=== PATIENT | male | born 1970 | race Caucasian/White ===

== ENCOUNTER 2016-11-13 08:39 | Outpatient (RCR) | payer OTHER ==
[2016-11-13 08:51] LABS: BASOPHILS % (AUTO) 0 % (0-10); EOSINOPHILS # (AUTO) 0.2 10^3/uL (0.0-0.3); EOSINOPHILS % (AUTO) 2 % (0-10); LYMPHOCYTES # (AUTO) 2.7 X 10^3 (1.0-4.0); LYMPHOCYTES % (AUTO) 28 % (12-44); MEAN CORPUSCULAR HEMOGLOBIN 32 PG (25-34); MEAN CORPUSCULAR HGB CONC 33 G/DL (32-36); MEAN CORPUSCULAR VOLUME 95 FL (80-99); MEAN PLATELET VOLUME 9.8 FL (7.4-10.4); MONOCYTES % (AUTO) 10 % (0-12); NEUTROPHILS # (AUTO) 5.7 X 10^3 (1.8-7.8); NEUTROPHILS % (AUTO) 59 % (42-75); PLATELET COUNT 238 10^3/uL (130-400); RED BLOOD COUNT 5.12 10^6/uL (4.35-5.85); RED CELL DISTRIBUTION WIDTH 14.2 % (10.0-14.5); WHITE BLOOD COUNT 9.7 10^3/uL (4.3-11.0)
[2016-11-13 09:09] LABS: CREATININE SERUM 0.78 MG/DL (0.60-1.30)
== END 2017-02-11 | disposition home or self-care (01) ==
LOC: LAB 08:39
PROVIDERS: ATTEND Internal Medicine Gastroenterology
DX: M06.9 Rheumatoid arthritis, unspecified (principal)
CPT/HCPCS: 36415; 82565; 84450; 85025

== ENCOUNTER → 2017-01-26 | Outpatient (CLI) | payer OTHER ==
[2017-01-26 10:21] LABS: BASOPHILS % (AUTO) 0 % (0-10); EOSINOPHILS # (AUTO) 0.1 10^3/uL (0.0-0.3); EOSINOPHILS % (AUTO) 1 % (0-10); LYMPHOCYTES # (AUTO) 2.7 X 10^3 (1.0-4.0); LYMPHOCYTES % (AUTO) 28 % (12-44); MEAN CORPUSCULAR HEMOGLOBIN 32 PG (25-34); MEAN CORPUSCULAR HGB CONC 34 G/DL (32-36); MEAN CORPUSCULAR VOLUME 94 FL (80-99); MEAN PLATELET VOLUME 10.1 FL (7.4-10.4); MONOCYTES # (AUTO) 0.8 X 10^3 (0.0-1.0); MONOCYTES % (AUTO) 8 % (0-12); NEUTROPHILS # (AUTO) 6.1 X 10^3 (1.8-7.8); NEUTROPHILS % (AUTO) 63 % (42-75); PLATELET COUNT 248 10^3/uL (130-400); RED BLOOD COUNT 4.99 10^6/uL (4.35-5.85); RED CELL DISTRIBUTION WIDTH 14.6 % (10.0-14.5); WHITE BLOOD COUNT 9.8 10^3/uL (4.3-11.0)
[2017-01-26 10:43] LABS: ALBUMIN 4.1 GM/DL (3.2-4.5); BILIRUBIN,DIRECT 0.4 MG/DL (0.0-0.3); BILIRUBIN,INDIRECT 0.9 MG/DL; BILIRUBIN,TOTAL 1.3 MG/DL (0.1-1.0); CREATININE SERUM 0.74 MG/DL (0.60-1.30); TOTAL PROTEIN 6.7 GM/DL (6.4-8.2); hs C REACTIVE PROTEIN 0.31 MG/DL (0.00-0.50)
[2017-01-26 10:49] LABS: ERYTHROCYTE SEDIMENTATION RATE 2 MM/HR (0-15)
--- NOTE | 2017-01-26 11:39 | Diagnostic Imaging Report ---
3 views of each hand is performed bilaterally. INDICATION: Joint pain. Positive rheumatoid factor. FINDINGS: 3 views of the left hand demonstrate no fracture, dislocation, or radiopaque foreign body. The joint spaces are preserved with no erosive arthritic changes noted. There is a 5-mm lucency in the proximal aspect of the capitate. This is a nonspecific finding and could be an incidental intraosseous ganglion cyst. Right hand radiographs demonstrate no fracture, dislocation, or radiopaque foreign body. There is no joint space narrowing, erosions, or deformity. IMPRESSION: No significant abnormality. Dictated by: Dictated on workstation # [id number]
--- NOTE | 2017-01-26 11:41 | Diagnostic Imaging Report ---
3 views of each foot bilaterally. INDICATION: Joint pain with positive rheumatoid factor. FINDINGS: Left foot: There is no fracture, dislocation, or radiopaque foreign body. Joint alignment is satisfactory. No evidence of erosive arthritis is seen. There is a prominent calcaneal spur noted. 3 views of the right foot: No acute fracture or subluxation or dislocation is present. No joint space narrowing, erosions, or malalignment. Calcaneal spur is seen. IMPRESSION: Bilateral calcaneal spurs are seen. No significant arthritic changes noted. Dictated by: Dictated on workstation # [id number]
[2017-01-26 20:54] LABS: HEPATITIS B SURFACE AB INDEX 49.97 mIU/mL (>=10.00)
[2017-01-27 07:02] LABS: HEPATITIS B SURFACE AB INTERP Immune (Immune)
== END ==
LOC: RAD 09:22
PROVIDERS: ATTEND Internal Medicine Rheumatology
DX: M77.31 Calcaneal spur, right foot (principal); M77.32 Calcaneal spur, left foot; M05.741 Rheumatoid arthritis with rheumatoid factor of right hand without organ or systems involvement; M05.742 Rheumatoid arthritis with rheumatoid factor of left hand without organ or systems involvement; Z79.899 Other long term (current) drug therapy; M88.9 Osteitis deformans of unspecified bone
CPT/HCPCS: 36415; 80076; 82565; 84075; 84080; 85025; 85652; 86141; 86200; 86430; 86480; 86705; 86706; 86803; 87340

== ENCOUNTER → 2017-06-16 | Outpatient (CLI) | payer OTHER ==
[2017-06-16 09:48] LABS: BASOPHILS % (AUTO) 0 % (0-10); EOSINOPHILS # (AUTO) 0.2 10^3/uL (0.0-0.3); EOSINOPHILS % (AUTO) 1 % (0-10); LYMPHOCYTES # (AUTO) 2.5 X 10^3 (1.0-4.0); LYMPHOCYTES % (AUTO) 22 % (12-44); MEAN CORPUSCULAR HEMOGLOBIN 32 PG (25-34); MEAN CORPUSCULAR HGB CONC 34 G/DL (32-36); MEAN CORPUSCULAR VOLUME 95 FL (80-99); MONOCYTES # (AUTO) 0.9 X 10^3 (0.0-1.0); MONOCYTES % (AUTO) 8 % (0-12); NEUTROPHILS # (AUTO) 7.6 X 10^3 (1.8-7.8); NEUTROPHILS % (AUTO) 68 % (42-75); PLATELET COUNT 254 10^3/uL (130-400); RED BLOOD COUNT 5.12 10^6/uL (4.35-5.85); RED CELL DISTRIBUTION WIDTH 13.9 % (10.0-14.5); WHITE BLOOD COUNT 11.2 10^3/uL (4.3-11.0)
[2017-06-16 10:09] LABS: ALANINE AMINOTRANSFERASE 46 U/L (0-55); ALBUMIN 4.2 GM/DL (3.2-4.5); ASPARTATE AMINO TRANSFERASE 21 U/L (5-34); BILIRUBIN,DIRECT 0.2 MG/DL (0.0-0.3); BILIRUBIN,INDIRECT 0.4 MG/DL; BILIRUBIN,TOTAL 0.6 MG/DL (0.1-1.0); CREATININE SERUM 0.78 MG/DL (0.60-1.30); GFR ESTIMATED > 60; TOTAL PROTEIN 7.2 GM/DL (6.4-8.2)
== END ==
LOC: LAB 09:28
PROVIDERS: ATTEND Internal Medicine Rheumatology
DX: Z51.81 Encounter for therapeutic drug level monitoring (principal); Z79.899 Other long term (current) drug therapy
CPT/HCPCS: 36415; 80076; 82565; 85025

== ENCOUNTER → 2017-09-07 | Outpatient (CLI) | payer OTHER | LOC: LAB 09:23 | PROVIDERS: ATTEND Internal Medicine Rheumatology | DX: M05.741 Rheumatoid arthritis with rheumatoid factor of right hand without organ or systems involvement (principal); M05.742 Rheumatoid arthritis with rheumatoid factor of left hand without organ or systems involvement | CPT/HCPCS: 36415; 85652 ==

== ENCOUNTER → 2017-11-24 | Outpatient (CLI) | payer OTHER ==
[2017-11-24 10:20] LABS: BASOPHILS % (AUTO) 1 % (0-10); EOSINOPHILS # (AUTO) 0.1 10^3/uL (0.0-0.3); EOSINOPHILS % (AUTO) 2 % (0-10); HEMATOCRIT 45 % (40-54); LYMPHOCYTES # (AUTO) 2.4 X 10^3 (1.0-4.0); LYMPHOCYTES % (AUTO) 28 % (12-44); MEAN CORPUSCULAR HEMOGLOBIN 34 PG (25-34); MEAN CORPUSCULAR HGB CONC 36 G/DL (32-36); MEAN CORPUSCULAR VOLUME 94 FL (80-99); MEAN PLATELET VOLUME 9.9 FL (7.4-10.4); MONOCYTES # (AUTO) 0.9 X 10^3 (0.0-1.0); MONOCYTES % (AUTO) 11 % (0-12); NEUTROPHILS # (AUTO) 5.2 X 10^3 (1.8-7.8); NEUTROPHILS % (AUTO) 60 % (42-75); PLATELET COUNT 261 10^3/uL (130-400); RED BLOOD COUNT 4.73 10^6/uL (4.35-5.85); RED CELL DISTRIBUTION WIDTH 13.8 % (10.0-14.5); WHITE BLOOD COUNT 8.7 10^3/uL (4.3-11.0)
[2017-11-24 10:43] LABS: ALANINE AMINOTRANSFERASE 43 U/L (0-55); ALBUMIN 4.1 GM/DL (3.2-4.5); ALKALINE PHOSPHATASE 134 U/L (40-136); BILIRUBIN,DIRECT 0.3 MG/DL (0.0-0.3); BILIRUBIN,INDIRECT 0.8 MG/DL; BILIRUBIN,TOTAL 1.1 MG/DL (0.1-1.0); CREATININE SERUM 0.75 MG/DL (0.60-1.30); GFR ESTIMATED > 60; TOTAL PROTEIN 6.8 GM/DL (6.4-8.2)
[2017-11-24 11:14] LABS: ERYTHROCYTE SEDIMENTATION RATE 4 MM/HR (0-15)
== END ==
LOC: LAB 09:55
PROVIDERS: ATTEND Internal Medicine Rheumatology
DX: M05.741 Rheumatoid arthritis with rheumatoid factor of right hand without organ or systems involvement (principal); M05.742 Rheumatoid arthritis with rheumatoid factor of left hand without organ or systems involvement; Z79.899 Other long term (current) drug therapy
CPT/HCPCS: 36415; 80076; 82565; 85025; 85652; 86141

== ENCOUNTER → 2018-02-01 | Outpatient (CLI) | payer OTHER ==
[2018-02-01 09:34] LABS: BASOPHILS % (AUTO) 0 % (0-10); EOSINOPHILS # (AUTO) 0.2 10^3/uL (0.0-0.3); EOSINOPHILS % (AUTO) 3 % (0-10); HEMATOCRIT 46 % (40-54); HEMOGLOBIN 15.9 G/DL (13.3-17.7); LYMPHOCYTES % (AUTO) 27 % (12-44); MEAN CORPUSCULAR HEMOGLOBIN 33 PG (25-34); MEAN CORPUSCULAR HGB CONC 34 G/DL (32-36); MEAN CORPUSCULAR VOLUME 95 FL (80-99); MONOCYTES # (AUTO) 0.6 X 10^3 (0.0-1.0); MONOCYTES % (AUTO) 9 % (0-12); NEUTROPHILS # (AUTO) 4.6 X 10^3 (1.8-7.8); NEUTROPHILS % (AUTO) 61 % (42-75); PLATELET COUNT 260 10^3/uL (130-400); RED BLOOD COUNT 4.89 10^6/uL (4.35-5.85); RED CELL DISTRIBUTION WIDTH 14.2 % (10.0-14.5); WHITE BLOOD COUNT 7.5 10^3/uL (4.3-11.0)
[2018-02-01 09:57] LABS: BILIRUBIN,DIRECT 0.2 MG/DL (0.0-0.3); BILIRUBIN,INDIRECT 0.4 MG/DL; BILIRUBIN,TOTAL 0.6 MG/DL (0.1-1.0); CREATININE SERUM 0.71 MG/DL (0.60-1.30)
[2018-02-01 10:00] LABS: ERYTHROCYTE SEDIMENTATION RATE 6 MM/HR (0-15)
== END ==
LOC: LAB 09:05
PROVIDERS: ATTEND Internal Medicine Rheumatology
DX: M05.741 Rheumatoid arthritis with rheumatoid factor of right hand without organ or systems involvement (principal); M05.742 Rheumatoid arthritis with rheumatoid factor of left hand without organ or systems involvement; Z79.899 Other long term (current) drug therapy
CPT/HCPCS: 36415; 80076; 82565; 85025; 85652; 86141

== ENCOUNTER 2018-04-27 10:50 | Outpatient (RCR) | payer OTHER ==
[2018-04-27 11:06] LABS: BASOPHILS % (AUTO) 0 % (0-10); EOSINOPHILS # (AUTO) 0.2 10^3/uL (0.0-0.3); EOSINOPHILS % (AUTO) 2 % (0-10); HEMATOCRIT 47 % (40-54); LYMPHOCYTES # (AUTO) 2.6 X 10^3 (1.0-4.0); LYMPHOCYTES % (AUTO) 30 % (12-44); MEAN CORPUSCULAR HEMOGLOBIN 32 PG (25-34); MEAN CORPUSCULAR HGB CONC 34 G/DL (32-36); MEAN CORPUSCULAR VOLUME 94 FL (80-99); MEAN PLATELET VOLUME 9.9 FL (7.4-10.4); MONOCYTES # (AUTO) 0.9 X 10^3 (0.0-1.0); MONOCYTES % (AUTO) 10 % (0-12); NEUTROPHILS # (AUTO) 4.9 X 10^3 (1.8-7.8); NEUTROPHILS % (AUTO) 58 % (42-75); PLATELET COUNT 281 10^3/uL (130-400); RED CELL DISTRIBUTION WIDTH 14.4 % (10.0-14.5); WHITE BLOOD COUNT 8.6 10^3/uL (4.3-11.0)
[2018-04-27 11:31] LABS: ALBUMIN 4.2 GM/DL (3.2-4.5); BILIRUBIN,DIRECT 0.2 MG/DL (0.0-0.3); BILIRUBIN,INDIRECT 0.5 MG/DL; BILIRUBIN,TOTAL 0.7 MG/DL (0.1-1.0); CREATININE SERUM 0.69 MG/DL (0.60-1.30); TOTAL PROTEIN 7.1 GM/DL (6.4-8.2)
[2018-04-27 11:50] LABS: ERYTHROCYTE SEDIMENTATION RATE 2 MM/HR (0-15)
== END 2018-07-26 | disposition home or self-care (01) ==
LOC: LAB 10:50
PROVIDERS: ATTEND Internal Medicine Rheumatology
DX: M05.741 Rheumatoid arthritis with rheumatoid factor of right hand without organ or systems involvement (principal); Z79.899 Other long term (current) drug therapy
CPT/HCPCS: 36415; 80076; 82565; 85025; 85652; 86141

== ENCOUNTER → 2018-05-02 | Outpatient (CLI) | payer OTHER ==
--- NOTE | 2018-05-02 10:33 | Diagnostic Imaging Report ---
INDICATION: Pain in right heel for 4 months. TIME OF EXAMINATION: 10:27 AM. FINDINGS: There is a large plantar calcaneal spur. The calcaneus is otherwise unremarkable. The midfoot is unremarkable. The metatarsals and phalanges are intact. No periosteal reaction or stress reaction is seen. No fractures are identified. IMPRESSION: Calcaneal spur. The study is otherwise unremarkable. Dictated by: Dictated on workstation # [id number]
== END ==
LOC: RAD 09:49
PROVIDERS: ATTEND Internal Medicine Rheumatology
DX: M77.31 Calcaneal spur, right foot (principal); M05.741 Rheumatoid arthritis with rheumatoid factor of right hand without organ or systems involvement; M05.742 Rheumatoid arthritis with rheumatoid factor of left hand without organ or systems involvement; M79.671 Pain in right foot
CPT/HCPCS: 73630

== ENCOUNTER → 2018-08-03 | Outpatient (CLI) | payer OTHER ==
[2018-08-03 10:47] LABS: BASOPHILS % (AUTO) 0 % (0-10); EOSINOPHILS # (AUTO) 0.2 10^3/uL (0.0-0.3); EOSINOPHILS % (AUTO) 2 % (0-10); HEMATOCRIT 46 % (40-54); HEMOGLOBIN 15.7 G/DL (13.3-17.7); LYMPHOCYTES # (AUTO) 2.5 X 10^3 (1.0-4.0); LYMPHOCYTES % (AUTO) 28 % (12-44); MEAN CORPUSCULAR HEMOGLOBIN 32 PG (25-34); MEAN CORPUSCULAR HGB CONC 34 G/DL (32-36); MEAN CORPUSCULAR VOLUME 95 FL (80-99); MEAN PLATELET VOLUME 9.8 FL (7.4-10.4); MONOCYTES # (AUTO) 0.7 X 10^3 (0.0-1.0); MONOCYTES % (AUTO) 8 % (0-12); NEUTROPHILS # (AUTO) 5.6 X 10^3 (1.8-7.8); NEUTROPHILS % (AUTO) 62 % (42-75); PLATELET COUNT 281 10^3/uL (130-400); RED CELL DISTRIBUTION WIDTH 14.7 % (10.0-14.5)
[2018-08-03 11:12] LABS: ALBUMIN 4.2 GM/DL (3.2-4.5); BILIRUBIN,DIRECT 0.3 MG/DL (0.0-0.3); BILIRUBIN,INDIRECT 0.5 MG/DL; BILIRUBIN,TOTAL 0.8 MG/DL (0.1-1.0); CREATININE SERUM 0.76 MG/DL (0.60-1.30); TOTAL PROTEIN 7.1 GM/DL (6.4-8.2)
[2018-08-03 12:35] LABS: ERYTHROCYTE SEDIMENTATION RATE 5 MM/HR (0-15)
== END ==
LOC: LAB 10:32
PROVIDERS: ATTEND Internal Medicine Rheumatology
DX: M05.741 Rheumatoid arthritis with rheumatoid factor of right hand without organ or systems involvement (principal); M05.742 Rheumatoid arthritis with rheumatoid factor of left hand without organ or systems involvement; Z79.899 Other long term (current) drug therapy
CPT/HCPCS: 36415; 80076; 82565; 85025; 85652; 86141

== ENCOUNTER → 2018-11-29 | Outpatient (CLI) | payer BC ==
[2018-11-29 10:38] LABS: BASOPHILS % (AUTO) 0 % (0-10); EOSINOPHILS # (AUTO) 0.1 10^3/uL (0.0-0.3); EOSINOPHILS % (AUTO) 2 % (0-10); HEMATOCRIT 47 % (40-54); LYMPHOCYTES % (AUTO) 29 % (12-44); MEAN CORPUSCULAR HEMOGLOBIN 33 PG (25-34); MEAN CORPUSCULAR HGB CONC 34 G/DL (32-36); MEAN CORPUSCULAR VOLUME 96 FL (80-99); MONOCYTES # (AUTO) 0.6 X 10^3 (0.0-1.0); MONOCYTES % (AUTO) 9 % (0-12); NEUTROPHILS # (AUTO) 4.2 X 10^3 (1.8-7.8); NEUTROPHILS % (AUTO) 60 % (42-75); PLATELET COUNT 247 10^3/uL (130-400); RED CELL DISTRIBUTION WIDTH 14.3 % (10.0-14.5); WHITE BLOOD COUNT 6.9 10^3/uL (4.3-11.0)
[2018-11-29 10:59] LABS: ALBUMIN 4.1 GM/DL (3.2-4.5); BILIRUBIN,DIRECT 0.3 MG/DL (0.0-0.3); BILIRUBIN,INDIRECT 0.4 MG/DL; BILIRUBIN,TOTAL 0.7 MG/DL (0.1-1.0); CREATININE SERUM 0.77 MG/DL (0.60-1.30); TOTAL PROTEIN 6.8 GM/DL (6.4-8.2)
[2018-11-29 11:04] LABS: ERYTHROCYTE SEDIMENTATION RATE 4 MM/HR (0-15)
== END ==
LOC: LAB 09:53
PROVIDERS: ATTEND Internal Medicine Rheumatology
DX: M05.741 Rheumatoid arthritis with rheumatoid factor of right hand without organ or systems involvement (principal); M05.742 Rheumatoid arthritis with rheumatoid factor of left hand without organ or systems involvement; Z79.899 Other long term (current) drug therapy
CPT/HCPCS: 36415; 80076; 82565; 85025; 85652; 86141

== ENCOUNTER → 2019-03-27 | Outpatient (CLI) | payer BC | LOC: LAB 09:14 | PROVIDERS: ATTEND Internal Medicine Rheumatology | DX: M05.741 Rheumatoid arthritis with rheumatoid factor of right hand without organ or systems involvement (principal); M05.742 Rheumatoid arthritis with rheumatoid factor of left hand without organ or systems involvement | CPT/HCPCS: 36415; 86141 ==

== ENCOUNTER 2019-05-03 20:02 | Emergency (ER) | payer BC ==
[~2019-05-03] VITALS: Ht 187.9 cm; Wt 154.5 kg
[2019-05-03 20:24] LABS: BASOPHILS % (AUTO) 0 % (0-10); EOSINOPHILS # (AUTO) 0.2 10^3/uL (0.0-0.3); EOSINOPHILS % (AUTO) 2 % (0-10); HEMATOCRIT 47 % (40-54); LYMPHOCYTES % (AUTO) 27 % (12-44); MEAN CORPUSCULAR HEMOGLOBIN 32 PG (25-34); MEAN CORPUSCULAR HGB CONC 34 G/DL (32-36); MEAN CORPUSCULAR VOLUME 95 FL (80-99); MEAN PLATELET VOLUME 9.5 FL (7.4-10.4); MONOCYTES # (AUTO) 1.1 X 10^3 (0.0-1.0); MONOCYTES % (AUTO) 9 % (0-12); NEUTROPHILS # (AUTO) 7.1 X 10^3 (1.8-7.8); NEUTROPHILS % (AUTO) 62 % (42-75); PLATELET COUNT 290 10^3/uL (130-400); RED CELL DISTRIBUTION WIDTH 14.6 % (10.0-14.5); WHITE BLOOD COUNT 11.3 10^3/uL (4.3-11.0)
[2019-05-03 20:41] LABS: FIBRIN DEGRADATION PRODUCTS 1.92 UG/ML (0.00-0.49); INR 0.9 (0.8-1.4); PROTHROMBIN TIME PATIENT 12.4 SEC (12.2-14.7)
[2019-05-03 20:53] LABS: ALANINE AMINOTRANSFERASE 29 U/L (0-55); ALBUMIN 4.3 GM/DL (3.2-4.5); ALKALINE PHOSPHATASE 142 U/L (40-136); BILIRUBIN,TOTAL 0.5 MG/DL (0.1-1.0); BUN/CREATININE RATIO 14; CALCIUM 9.5 MG/DL (8.5-10.1); CARBON DIOXIDE 23 MMOL/L (21-32); CHLORIDE 106 MMOL/L (98-107); CREATINE KINASE 88 U/L (30-200); CREATININE SERUM 0.81 MG/DL (0.60-1.30); GFR ESTIMATED > 60; GLUCOSE 98 MG/DL (70-105); LIPASE 6 U/L (8-78); MAGNESIUM 1.7 MG/DL (1.6-2.4); POTASSIUM 4.3 MMOL/L (3.6-5.0); SODIUM 141 MMOL/L (135-145); TOTAL PROTEIN 7.4 GM/DL (6.4-8.2)
[2019-05-03 20:56] LABS: ACETAMINOPHEN < 10 UG/ML (10-30)
--- NOTE | 2019-05-03 21:00 | Diagnostic Imaging Report ---
PROCEDURE: CT head wo r/o stroke. TECHNIQUE: Multiple contiguous axial images were obtained through the brain without the use of intravenous contrast. Auto Exposure Controls were utilized during the CT exam to meet ALARA standards for radiation dose reduction. INDICATION: Bilateral hand numbness. COMPARISON: None. FINDINGS: The ventricles and cortical sulci are age-appropriate. There is no midline shift or mass-effect. No acute intracranial hemorrhage is seen. There is no CT evidence of acute territorial ischemia. No focal masses or collections are present. The calvarium is intact. The visualized paranasal sinuses are clear. IMPRESSION: No hemorrhage or focal intra-axial mass. No CT evidence of large acute territorial ischemia. Dictated by: Dictated on workstation # [id number]
[2019-05-03 21:12] LABS: CREATINE KINASE MB 2.7 NG/ML (<6.6); TSH (THYROID ANALYZER) 3.04 UIU/ML (0.35-4.94)
[2019-05-03] MEDS ORDERED: IOHEXOL 350 MG/ML 100 ML (OMNIPAQUE 350) VIAL IV ONE (21:15)
[2019-05-03] MEDS ORDERED: HOLD METFORMIN - RECEIVED CONTRAST 20 ML VIAL IV SCH (21:15)
[2019-05-03] MEDS ORDERED: CATHETER FLUSH 10 ML SYR IV PRN (21:15)
[2019-05-03] MEDS ORDERED: NS 100 ML (IVPB) BAG IV ONE (21:15)
[2019-05-03 21:33] LABS: BILIRUBIN,URINE NEGATIVE (NEGATIVE); CLARITY,URINE CLEAR; COLOR,URINE YELLOW; GLUCOSE, URINE (UA) NEGATIVE (NEGATIVE); KETONES,URINE NEGATIVE (NEGATIVE); LEUKOCYTE ESTERASE ,URINE NEGATIVE (NEGATIVE); NITRITE,URINE NEGATIVE (NEGATIVE); PROTEIN,URINE NEGATIVE (NEGATIVE)
--- NOTE | 2019-05-03 21:39 | Diagnostic Imaging Report ---
Patient History: Left-sided numbness.. Technique: Two views of the chest Comparison: None FINDINGS: The lung volumes are normal. No focal consolidation is seen. No large pleural effusion or pneumothorax is seen. The cardiomediastinal silhouette is normal in size and contour. No acute osseous abnormality is seen. IMPRESSION: 1. No acute pleuroparenchymal process. Dictated by: Dictated on workstation # [id number]
[2019-05-03 21:46] LABS: AMPHETAMINE SCREEN, URINE NEGATIVE (NEGATIVE); BARBITURATE SCREEN URINE NEGATIVE (NEGATIVE); BENZODIAZEPINES SCREEN URINE POSITIVE (NEGATIVE); CANNABINOID SCREEN, URINE NEGATIVE (NEGATIVE); COCAINE SCREEN URINE NEGATIVE (NEGATIVE); METHADONE STAT NEGATIVE (NEGATIVE); METHAMPHETAMINE SCREEN URINE S NEGATIVE (NEGATIVE); OPIATE SCREEN URINE NEGATIVE (NEGATIVE); OXYCODONE STAT NEGATIVE (NEGATIVE); PROPOXYPHENE STAT NEGATIVE (NEGATIVE); TRICYCLIC ANTIDEPRESSANTS SCRE NEGATIVE (NEGATIVE)
[2019-05-03 21:54] LABS: BACTERIA,URINE NEGATIVE /HPF; SQUAMOUS EPITHELIAL CELL,UR RARE /HPF
--- NOTE | 2019-05-03 22:17 | Diagnostic Imaging Report ---
PROCEDURE: CT angiography of the head and CT angiography of the neck with and without contrast. TECHNIQUE: Contiguous noncontrast images were obtained from the skull base through the vertex. After intravenous contrast administration, helical CT angiography of the neck was performed. Source data was reformatted into 3D MIP projections. Delayed post contrast acquisition was also obtained. Auto Exposure Controls were utilized during the CT exam to meet ALARA standards for radiation dose reduction. INDICATION: Bilateral hand numbness. Comparison: CT head performed earlier the same date. FINDINGS: CTA Neck: The visualized portions of the aortic arch demonstrate no evidence of aneurysm or dissection. There is conventional branching pattern of the great vessels of the aorta. The brachiocephalic artery is normal in course and caliber. The right and left common carotid origins are unremarkable. The origin of the left subclavian artery is patent. The common carotid arteries and internal carotid arteries demonstrate a normal course and caliber without evidence of stenosis or dissection. A small amount of calcified atherosclerotic plaque is seen in the bilateral carotid bulbs. The external carotid arteries are patent and unremarkable. The vertebral arteries are codominant. The origin of the right vertebral artery is seen and is unremarkable. The origin of the left vertebral artery is seen and is unremarkable. There is no focal stenosis seen within the neck. There is no dissection. The vertebral arteries are well visualized to up to the level of the basilar artery. The osseous structures of the cervical spine are unremarkable. Included views through the lung apices demonstrate no focal consolidation. CTA brain: The bilateral distal internal carotid arteries are well visualized without significant stenosis. No stenosis is seen in the bilateral anterior, middle, and posterior cerebral arteries. No evidence of aneurysm the [place]. In the posterior circulation, both of the vertebral arteries demonstrate normal opacification. The vertebral arteries are codominant. Both the right and left PICA arteries are identified. The basilar artery is normal in course and caliber. The terminal branch vessels including the superior cerebellar arteries unremarkable. IMPRESSION: 1. No stenosis or aneurysm in the [place]. 2. No stenosis or dissection the bilateral carotid and vertebral arteries. Dictated by: Dictated on workstation # [id number]
[2019-05-03] MEDS ORDERED: methylPREDNISolone 125 MG (Solu-MEDROL) VIAL IVP ONE (22:30)
--- NOTE | 2019-05-03 22:47 | ED Neurological Problem ---
General Chief Complaint: Neuro-Stroke Like Symptoms Stated Complaint: NUMBNESS L SIDE Source: patient History of Present Illness Date Seen by Provider: May 03, 2019 Time Seen by Provider: 20:10 Initial Comments PT ARRIVES VIA POV FROM HOME STATES THAT SINCE Wednesday04/29/19, HE HAS HAD NUMBNESS AND TINGLING IN BOTH OF HIS HANDS AND BOTH OF HIS FEET--SEEMS WORST IN LEFT FOOT. 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 STATES STATES HE HAS BEEN HAVING SOME DIFFICULTY WALKING AND HIS LEGS WILL FEEL WOBBLY AND "GIVE OUT" SOMETIMES STATES HE HAS BEEN HAVING DIFFICULTY DRIVING BECAUSE HE CANNOT FEEL HIS FEET ON THE FOOT PEDALS. NO HEADACHE SLIGHT BLURRY VISION AT TIMES, BUT ALSO JUST GOT BIFOCALS. NO DIZZINESS NO CHEST PAIN NO SHORTNESS OF BREATH NO NAUSEA/VOMITING/DIARRHEA OR ABDOMINAL PAIN NO FEVER OR RECENT ILLNESS PT HAS RHEUMATOID ARTHRITIS, AND TAKES FOLIC ACID, WEEKLY SHOTS OF METHOTREXATE, AND HUMIRA EVERY 2 WEEKS--LAST DOSE WAS 04/22/19. PT HAS BEEN OFF PREDNISONE FOR AT LEAST 6 MONTHS NO OTHER CHANGES IN R.A. MEDICATIONS NO KNOWN CHEMICAL EXPOSURES, ETC. NO HISTORY OF SIMILAR SAW DR. TORRES'S CAR REPAIR SUPERVISOR ON WEDNESDAY FOR THIS PROBLEM, AND STATED THAT HIS BP WAS HIGH AND WAS STARTED ON LISINOPRIL, AND HAD LAB DONE. HAS FOLLOW UP APPOINTMENT IN 2 WEEKS. PT DID NOT MENTION TO ME, BUT PER MED RECONCILIATION, PT WAS ALSO STARTED ON ATORVASTATIN ON WEDNESDAY PT ALSO DID NOT MENTION THAT HE WAS STARTED ON SINGULAIR ON 02/23/19. PCP: DR. TORRES Allergies and Home Medications Allergies Coded Allergies: No Known Drug Allergies (Unverified , 05/03/19) Patient Home Medication List Home Medication List Reviewed: Yes Review of Systems Review of Systems Constitutional: no symptoms reported; No dizziness, No fever, No malaise, No weakness Eyes: See HPI, Blurred Vision Ears, Nose, Mouth, Throat: no symptoms reported Respiratory: no symptoms reported; No cough, No short of breath Cardiovascular: no symptoms reported; No chest pain, No edema, No palpitations, No syncope, No vascular heart diseas Gastrointestinal: no symptoms reported; No abdominal pain, No diarrhea, No loss of appetite, No nausea, No vomiting Genitourinary: no symptoms reported Musculoskeletal: see HPI; No back pain, No neck pain Skin: no symptoms reported; No rash Psychiatric/Neurological: See HPI; Denies Cognitive Dysfunction, Denies Headache; Numbness, Tingling Endocrine: No Symptoms Reported Hematologic/Lymphatic: No Symptoms Reported Past Whusbjb-[id number]-Yffkff Hx Patient Social History Alcohol Use: Regular Use (2-3 TIMES A WEEK) Recreational Drug Use: No Smoking Status: Current Everyday Smoker (1 PPD) Recent Foreign Travel: No Contact w/Someone Who Travel: No Past Medical History Surgeries: Yes (RIGHT INGUINAL HERNIA REPAIR; BILATERAL KNEE SCOPES) Abdominal, Orthopedic Respiratory: No Cardiac: Yes (NEW DX 05/01/19) Hypertension Neurological: No Genitourinary: No Gastrointestinal: Yes (RIGHT INGUINAL HERNIA REPAIR) Abdominal Hernia Musculoskeletal: Yes Rheumatoid Arthritis Endocrine: Yes (OBESITY) HEENT: Yes (BIFOCALS) Cancer: No Psychosocial: No Integumentary: No Blood Disorders: No Physical Exam Vital Signs Vital Signs - First Documented 05/03/19 05/03/19 20:07 23:10 Temp 36.3 Pulse 89 Resp 18 B/P (MAP) 143/99 (114) Pulse Ox 100 O2 Delivery Room Air Capillary Refill : Height, Weight, BMI Height: '" Weight: lbs. oz. kg; BMI Method: General Appearance: no apparent distress, obese, other (SMILING, TALKATIVE, WALKS IN ON OWN WITHOUT DIFFICULTY) Neck: normal inspection Respiratory: normal breath sounds, no respiratory distress, no accessory muscle use Cardiovascular: normal peripheral pulses, regular rate, rhythm, no edema, no JVD, no murmur Peripheral Pulses: 2+ Dorsalis Pedis (R), 2+ Left Dors-Pedis (L), 2+ Radial Pulses (R), 2+ Radial Pulses (L) Gastrointestinal: normal bowel sounds, non tender, soft Back: no CVA tenderness, no vertebral tenderness Extremities: normal range of motion, non-tender, normal inspection, normal capillary refill Neurologic/Psychiatric: insurance verify rep II-XII nml as tested, alert, normal mood/affect, oriented x 3; No abnormal gait, No EOM palsy, No facial droop, No motor weakness; sensory deficit (DECREASED SENSATION TO BOTH FEET. ) Crainal Nerves: normal hearing, normal speech, PERRL Coordination/Gait: normal finger to nose, normal gait, negative Romberg's sign, other (UNABLE TO DO ONE LEG STANDING WITH EITHER LEG) Motor/Sensory: no motor deficit, no pronator drift, negative Babinski's sign, sensory deficit (BILATERAL FEET) Reflexes: 2+ Bicep (R), 2+ Bicep (L), 2+ Knee (R), 2+ Knee (L) Skin: normal color, warm/dry Stroke NIH Stroke Scale Assessment Select: Initial Level of Consciousness: 0=Alert (0), Level of Consciousness- Questions: 0=Answers both month/age (0), LOC Commands: 0=Performs both tasks (0), Gaze: Normal (0), Visual Eisenberg: 0=No visual loss (0), Facial Movement (Facial Paresis): 0=Normal symmetrical mnt (0), Motor Function-Arms Right: 0=No drift (0), Motor Function-Arms Left: 0=No drift (0), Motor Function-Legs Right: 0=No drift (0), Motor Function-Legs Left: 0=No drift (0), Limb Ataxia: 0=Absent (0), Sensory: 1=Mild to Moderate loss BILATERAL FEET (1), Best Language: 0=No aphasia (0), Dysarthria: 0=Normal (0), Extinction & Inattention: 0=No abnormality (0), Total: 1 Stroke Thrombolytic Exclusion Age 18 or Over: Yes Acute intenal hemorrhage: No History of CVA: No Uncontrolled Coagulation Defec: No Intracranial Hemorrhage: No Severe Hypertension: No GI or Bleed: No Subarachnoid Hemorrhage: No Intracranial Neoplasm/Aneurysm: No Oral Anticoagulants: No Surgery or Trauma: No Puncture of Non-Compressible V: No Recent CPR: No Diabetic Hemorrhagic Retinopat: No Organ Biopsy: No Recent Obstetric Delivery: No Glucose: No Significant Hepatic Dysfunctio: No NIH Stoke Scale >22: No Bacterial Endocarditis: No Pericarditis: No Improving Symptoms: No Platelets: No TPA Contraindication: No IV - TPa Received IV - TPa Procedure Performed?: No (PT IS NOT EXHIBITING TRUE STROKE SYMPTOMS, THEY ARE BILATERAL, AND NO MOTOR DEFICITS. SYMPTOMS ALSO ONGOING FOR 5 DAYS. ) Progress/Results/Core Measures Results/Orders Lab Results Laboratory Tests Test 05/03/19 20:15 05/03/19 20:23 05/03/19 21:21 Range/Units White Blood Count 11.3 H 4.3-11.0 10^3/uL Red Blood Count 5.01 4.35-5.85 10^6/uL Hemoglobin 16.0 13.3-17.7 G/DL Hematocrit 47 40-54 % Mean Corpuscular Volume 95 80-99 FL Mean Corpuscular Hemoglobin 32 25-34 PG Mean Corpuscular Hemoglobin Concent 34 32-36 G/DL Red Cell Distribution Width 14.6 H 10.0-14.5 % Platelet Count 290 130-400 10^3/uL Mean Platelet Volume 9.5 7.4-10.4 FL Neutrophils (%) (Auto) 62 42-75 % Lymphocytes (%) (Auto) 27 12-44 % Monocytes (%) (Auto) 9 0-12 % Eosinophils (%) (Auto) 2 0-10 % Basophils (%) (Auto) 0 0-10 % Neutrophils # (Auto) 7.1 1.8-7.8 X 10^3 Lymphocytes # (Auto) 3.0 1.0-4.0 X 10^3 Monocytes # (Auto) 1.1 H 0.0-1.0 X 10^3 Eosinophils # (Auto) 0.2 0.0-0.3 10^3/uL Basophils # (Auto) 0.0 0.0-0.1 10^3/uL Erythrocyte Sedimentation Rate 1 0-15 MM/HR Prothrombin Time 12.4 12.2-14.7 SEC INR Comment 0.9 0.8-1.4 Activated Partial Thromboplast Time 32 24-35 SEC D-Dimer 1.92 H 0.00-0.49 UG/ML Sodium Level 141 135-145 MMOL/L Potassium Level 4.3 3.6-5.0 MMOL/L Chloride Level 106 98-107 MMOL/L Carbon Dioxide Level 23 21-32 MMOL/L Anion Gap 12 5-14 MMOL/L Blood Urea Nitrogen 11 7-18 MG/DL Creatinine 0.81 0.60-1.30 MG/DL Estimat Glomerular Filtration Rate > 60 BUN/Creatinine Ratio 14 Glucose Level 98 70-105 MG/DL Calcium Level 9.5 8.5-10.1 MG/DL Corrected Calcium 9.3 8.5-10.1 MG/DL Magnesium Level 1.7 1.6-2.4 MG/DL Total Bilirubin 0.5 0.1-1.0 MG/DL Aspartate Amino Transf (AST/SGOT) 19 5-34 U/L Alanine Aminotransferase (ALT/SGPT) 29 0-55 U/L Alkaline Phosphatase 142 H 40-136 U/L Total Creatine Kinase 88 30-200 U/L Creatine Kinase MB 2.7 <6.6 NG/ML Myoglobin 66.9 10.0-92.0 NG/ML Troponin I < 0.028 <0.028 NG/ML C-Reactive Protein High Sensitivity 0.61 H 0.00-0.50 MG/DL B-Type Natriuretic Peptide < 10.0 <100.0 PG/ML Total Protein 7.4 6.4-8.2 GM/DL Albumin 4.3 3.2-4.5 GM/DL Lipase 6 L 8-78 U/L TSH [place] Testing 3.04 0.35-4.94 UIU/ML Acetaminophen Level < 10 L 10-30 UG/ML Serum Alcohol < 10 <10 MG/DL Glucometer 96 70-110 MG/DL Urine Color YELLOW Urine Clarity CLEAR Urine pH 6.0 5-9 Urine Specific Breaks >=1.030 1.016-1.022 Urine Protein NEGATIVE NEGATIVE Urine Glucose (UA) NEGATIVE NEGATIVE Urine Ketones NEGATIVE NEGATIVE Urine Nitrite NEGATIVE NEGATIVE Urine Bilirubin NEGATIVE NEGATIVE Urine Urobilinogen 0.2 < = 1.0 MG/DL Urine Leukocyte Esterase NEGATIVE NEGATIVE Urine RBC (Auto) NEGATIVE NEGATIVE Urine RBC NONE /HPF Urine WBC NONE /HPF Urine Squamous Epithelial Cells RARE /HPF Urine Crystals NONE /LPF Urine Bacteria NEGATIVE /HPF Urine Casts NONE /LPF Urine Mucus NEGATIVE /LPF Urine Culture Indicated NO Urine Opiates Screen NEGATIVE NEGATIVE Urine Oxycodone Screen NEGATIVE NEGATIVE Urine Methadone Screen NEGATIVE NEGATIVE Urine Propoxyphene Screen NEGATIVE NEGATIVE Urine Barbiturates Screen NEGATIVE NEGATIVE Ur Tricyclic Antidepressants Screen NEGATIVE NEGATIVE Urine Phencyclidine Screen NEGATIVE NEGATIVE Urine Amphetamines Screen NEGATIVE NEGATIVE Urine Methamphetamines Screen NEGATIVE NEGATIVE Urine Benzodiazepines Screen POSITIVE H NEGATIVE Urine Cocaine Screen NEGATIVE NEGATIVE Urine Cannabinoids Screen NEGATIVE NEGATIVE My Orders Orders - CIPRIANO CLEMENT DO Ed Iv/Invasive Line Start (05/03/19 20:12) Ekg Tracing (05/03/19 20:12) Monitor-Rhythm Ecg Trace Only (05/03/19 20:12) Ct Head Wo-R/O Stroke (05/03/19 20:12) Acetaminophen (05/03/19 20:12) Alcohol (05/03/19 20:12) BNP (05/03/19 20:12) Cbc With Automated Diff (05/03/19 20:12) Comprehensive Metabolic Panel (05/03/19 20:12) Creatine Kinase (05/03/19 20:12) Creatine Kinase Mb (05/03/19 20:12) Drug Screen Stat (Urine) (05/03/19 20:12) Lipase (05/03/19 20:12) Magnesium (05/03/19 20:12) Protime With Inr (05/03/19 20:12) Partial Thromboplastin Time (05/03/19 20:12) Thyroid Analyzer (05/03/19 20:12) Ua Culture If Indicated (05/03/19 20:12) Myoglobin Serum (05/03/19 20:12) Troponin I (05/03/19 20:12) Chest Pa/Lat (2 View) (05/03/19 20:12) Fibrin Degradation Products (05/03/19 20:12) Accucheck Stat ONCE (05/03/19 20:12) Ed Iv/Invasive Line Start (05/03/19 20:12) Ed Iv/Invasive Line Start (05/03/19 20:12) Vital Signs Stroke Patient Q15M (05/03/19 20:12) Intake & Output 06,14,22 (05/03/19 20:12) Dysphagia Screening Tool (05/03/19 20:12) Ct Angio Head/Neck (05/03/19 21:03) Iohexol Injection (Omnipaque 350 Mg/Ml 1 (05/03/19 21:15) Received Contrast (Hold Metformin- Contr (05/03/19 21:15) Sodium Chloride Flush (Catheter Flush Sy (05/03/19 21:15) Ns (Ivpb) (Sodium Chloride 0.9% Ivpb Bag (05/03/19 21:15) Methylprednisolone Sod Succ (Solu-Medrol (05/03/19 22:30) Vitamin B 12 (05/03/19 22:28) Folic Acid (05/03/19 22:28) Vitamin D 25-Hydroxy (05/03/19 22:28) Hs C Reactive Protein (05/03/19 22:28) Erythrocyte Sedimentation Rate (05/03/19 22:28) Medications Given in ED Current Medications Medications Dose Ordered Sig/Alexus Route Start Time Stop Time Status Last Admin Dose Admin Iohexol 100 ml ONCE ONCE IV 05/03/19 21:15 05/03/19 21:16 DC 05/03/19 21:39 75 ML Methylprednisolone Sodium Succinate 125 mg ONCE ONCE IVP 05/03/19 22:30 05/03/19 22:31 DC 05/03/19 22:38 125 MG Sodium Chloride 100 ml ONCE ONCE IV 05/03/19 21:15 05/03/19 21:16 DC 05/03/19 21:39 80 ML Vital Signs/I&O 05/03/19 05/03/19 20:07 23:10 Temp 36.3 36.3 Pulse 89 60 Resp 18 18 B/P (MAP) 143/99 (114) 112/78 (114) Pulse Ox 100 O2 Delivery Room Air Room Air FSBG Bedside Testing Finger Stick Blood Glucose: 96 Blood Glucose Action Taken: rn notified Progress Progress Note : Progress Note UNEVENTFUL ER STAY Initial ECG Impression Date: May 03, 2019 Initial ECG Impression Time: 20:19 Initial ECG Rate: 79 Initial ECG Rhythm: Normal Sinus Initial ECG Impression: Normal Initial ECG Comparisson: No Previous ECG Available Diagnostic Imaging Comments CXR--NO ACUTE PROCESS, PER RADIOLOGIST REPORT CT HEAD--NO ACUTE PROCESS, PER RADIOLOGIST REPORT AT 2102 CT ANGIOGRAM HEAD/NECK--NO ACUTE PROCESS, PER RADIOLOGIST REPORT AT 0 Reviewed: Reviewed by Me Departure Communication (PCP) 2224--SPOKE WITH DR. TORRES, ADVISES TO OBTAIN B12, VITAMIN D3, SED RATE AND CRP. WILL GIVE A SINGLE DOSE OF STEROIDS HERE IN ER. SHE WILL FOLLOW UP IN OFFICE. SHE WILL ARRANGE FOR OUTPATIENT MRI AND/OR REFERRAL TO NEUROLOGIST, SHE WILL ALSO DISCUSS WITH [employer] AD[employer]ER TO WHETHER THIS COULD BE RELATED TO MEDICATIONS FOR HIS R.A. Impression Primary Impression: Paresthesia of upper and lower extremities of both sides Disposition: 01 HOME, SELF-CARE Condition: Stable Departure-Patient Inst. Referrals: JACQUELINE TORRES DO (PCP/Family) Primary Care Physician Patient Instructions: Paresthesias (DC) Add. Discharge Instructions: CONTINUE YOUR REGULAR MEDICATIONS PRESCRIBED FOLLOW UP WITH DR. TORRES AND YOUR [employer] ADJUSTER FOR FURTHER CARE All discharge instructions reviewed with patient and/or family. Voiced understanding. CIPRIANO CLEMENT DO May 03, 2019 22:47 POS
[2019-05-03 23:10] VITALS: BP 112/78
== END 2019-05-03 23:13 | disposition home or self-care (01) ==
LOC: EDUNIT# 20:02 → ER 20:03
DX: R20.2 Paresthesia of skin (principal); I10 Essential (primary) hypertension; M06.9 Rheumatoid arthritis, unspecified; E66.9 Obesity, unspecified; F17.210 Nicotine dependence, cigarettes, uncomplicated; Z68.41 Body mass index [BMI] 40.0-44.9, adult
CPT/HCPCS: 36415; 70450; 70496; 70498; 71046; 80053; 80306; 80320; 80329; 81000; 82306; 82550; 82553; 82607; 82746; 82962; 83690; 83735; 83874; 83880; 84443; 84484; 85025; 85379; 85610; 85652; 85730; 86141; 93005; 93041

== ENCOUNTER → 2019-07-24 | Outpatient (CLI) | payer BC ==
[2019-07-24 11:44] LABS: BASOPHILS % (AUTO) 0 % (0-10); EOSINOPHILS # (AUTO) 0.1 10^3/uL (0.0-0.3); EOSINOPHILS % (AUTO) 2 % (0-10); HEMATOCRIT 45 % (40-54); HEMOGLOBIN 14.9 G/DL (13.3-17.7); LYMPHOCYTES # (AUTO) 1.3 X 10^3 (1.0-4.0); LYMPHOCYTES % (AUTO) 16 % (12-44); MEAN CORPUSCULAR HEMOGLOBIN 32 PG (25-34); MEAN CORPUSCULAR HGB CONC 33 G/DL (32-36); MEAN CORPUSCULAR VOLUME 96 FL (80-99); MONOCYTES # (AUTO) 0.8 X 10^3 (0.0-1.0); MONOCYTES % (AUTO) 10 % (0-12); NEUTROPHILS # (AUTO) 5.8 X 10^3 (1.8-7.8); NEUTROPHILS % (AUTO) 73 % (42-75); PLATELET COUNT 228 10^3/uL (130-400); RED CELL DISTRIBUTION WIDTH 14.7 % (10.0-14.5)
[2019-07-24 12:02] LABS: BILIRUBIN,DIRECT 0.4 MG/DL (0.0-0.3); BILIRUBIN,INDIRECT 0.3 MG/DL; BILIRUBIN,TOTAL 0.7 MG/DL (0.1-1.0); CREATININE SERUM 0.77 MG/DL (0.60-1.30); TOTAL PROTEIN 6.7 GM/DL (6.4-8.2)
== END ==
LOC: LAB 11:25
PROVIDERS: ATTEND Internal Medicine Rheumatology
DX: M05.741 Rheumatoid arthritis with rheumatoid factor of right hand without organ or systems involvement (principal); M05.742 Rheumatoid arthritis with rheumatoid factor of left hand without organ or systems involvement; Z79.899 Other long term (current) drug therapy
CPT/HCPCS: 36415; 80076; 82565; 85025; 86141

== ENCOUNTER → 2019-11-17 | Outpatient (CLI) | payer BC ==
[2019-11-17 10:09] LABS: BASOPHILS % (AUTO) 0 % (0-10); EOSINOPHILS # (AUTO) 0.1 10^3/uL (0.0-0.3); EOSINOPHILS % (AUTO) 1 % (0-10); HEMATOCRIT 45 % (40-54); HEMOGLOBIN 15.2 G/DL (13.3-17.7); LYMPHOCYTES # (AUTO) 2.2 X 10^3 (1.0-4.0); LYMPHOCYTES % (AUTO) 21 % (12-44); MEAN CORPUSCULAR HEMOGLOBIN 33 PG (25-34); MEAN CORPUSCULAR HGB CONC 34 G/DL (32-36); MEAN CORPUSCULAR VOLUME 97 FL (80-99); MEAN PLATELET VOLUME 9.4 FL (7.4-10.4); MONOCYTES # (AUTO) 0.9 X 10^3 (0.0-1.0); MONOCYTES % (AUTO) 9 % (0-12); NEUTROPHILS # (AUTO) 7.3 X 10^3 (1.8-7.8); NEUTROPHILS % (AUTO) 69 % (42-75); PLATELET COUNT 278 10^3/uL (130-400); RED CELL DISTRIBUTION WIDTH 14.4 % (10.0-14.5); WHITE BLOOD COUNT 10.6 10^3/uL (4.3-11.0)
[2019-11-17 10:38] LABS: ALBUMIN 4.2 GM/DL (3.2-4.5); BILIRUBIN,DIRECT 0.3 MG/DL (0.0-0.3); BILIRUBIN,INDIRECT 0.4 MG/DL; BILIRUBIN,TOTAL 0.7 MG/DL (0.1-1.0); CREATININE SERUM 0.81 MG/DL (0.60-1.30); TOTAL PROTEIN 7.3 GM/DL (6.4-8.2)
[2019-11-17 10:41] LABS: ERYTHROCYTE SEDIMENTATION RATE 3 MM/HR (0-15)
== END ==
LOC: LAB 09:56
PROVIDERS: ATTEND Internal Medicine Rheumatology
DX: M05.742 Rheumatoid arthritis with rheumatoid factor of left hand without organ or systems involvement (principal); Z79.899 Other long term (current) drug therapy
CPT/HCPCS: 36415; 80061; 80076; 82565; 85025; 85652; 86141

== ENCOUNTER → 2020-06-17 | Outpatient (CLI) | payer BC ==
[2020-06-17 09:55] LABS: BASOPHILS % (AUTO) 0 % (0-10); EOSINOPHILS # (AUTO) 0.1 10^3/uL (0.0-0.3); EOSINOPHILS % (AUTO) 1 % (0-10); HEMATOCRIT 44 % (40-54); HEMOGLOBIN 14.5 g/dL (13.3-17.7); LYMPHOCYTES % (AUTO) 25 % (12-44); MEAN CORPUSCULAR HEMOGLOBIN 32 pg (25-34); MEAN CORPUSCULAR HGB CONC 33 g/dL (32-36); MEAN CORPUSCULAR VOLUME 97 fL (80-99); MEAN PLATELET VOLUME 9.8 fL (9.0-12.2); MONOCYTES # (AUTO) 0.6 10^3/uL (0.0-1.0); MONOCYTES % (AUTO) 7 % (0-12); NEUTROPHILS # (AUTO) 5.2 10^3/uL (1.8-7.8); NEUTROPHILS % (AUTO) 65 % (42-75); PLATELET COUNT 280 10^3/uL (130-400)
[2020-06-17 10:18] LABS: ALANINE AMINOTRANSFERASE 41 U/L (0-55); ALKALINE PHOSPHATASE 151 U/L (40-136); BILIRUBIN,TOTAL 0.7 MG/DL (0.1-1.0); BUN/CREATININE RATIO 18; CALCIUM 8.8 MG/DL (8.5-10.1); CARBON DIOXIDE 25 MMOL/L (21-32); CHLORIDE 105 MMOL/L (98-107); CHOLESTEROL 155 MG/DL (< 200); CREATININE SERUM 0.74 MG/DL (0.60-1.30); GFR ESTIMATED > 60; GLUCOSE 97 MG/DL (70-105); HDL CHOLESTEROL 58 MG/DL (40-60); SODIUM 136 MMOL/L (135-145); TOTAL PROTEIN 6.7 GM/DL (6.4-8.2); TRIGLYCERIDES 87 MG/DL (<150); VLDL CHOLESTEROL 17 MG/DL (5-40)
[2020-06-17 10:40] LABS: FREE T4 (FREE THYROXINE) 0.78 NG/DL (0.70-1.48)
== END ==
LOC: LAB 09:23
PROVIDERS: ATTEND Family Medicine
DX: Z00.00 Encounter for general adult medical examination without abnormal findings (principal); Z13.6 Encounter for screening for cardiovascular disorders; I10 Essential (primary) hypertension; M05.741 Rheumatoid arthritis with rheumatoid factor of right hand without organ or systems involvement
CPT/HCPCS: 36415; 80053; 80061; 84439; 84443; 85025

== ENCOUNTER → 2020-09-13 | Outpatient (CLI) | payer BC ==
[~2020-09-13] VITALS: Ht 188 cm; Wt 152.0 kg
[~2020-09-13] MED LIST: BAMLANIVIMAB (NON FORM) 700 MG in NS (IVPB) 100 ML IV ONE; EPINEPHrine INJECTION 1 MG/ML AMP IM PRN; diphenhydrAMINE 50 MG/ML INJ (BENADRYL) IV PRN
[2020-09-13 07:52] VITALS: BP 173/93
[2020-09-13 09:00] VITALS: BP 144/78
== END ==
LOC: INFUSION 07:53
PROVIDERS: ATTEND Nurse Practitioner Family
DX: Z23 Encounter for immunization (principal); U07.1 COVID-19

== ENCOUNTER → 2020-11-15 | Outpatient (CLI) | payer BC ==
[2020-11-15 10:43] LABS: BASOPHILS % (AUTO) 0 % (0-10); EOSINOPHILS # (AUTO) 0.1 10^3/uL (0.0-0.3); EOSINOPHILS % (AUTO) 1 % (0-10); HEMATOCRIT 46 % (40-54); HEMOGLOBIN 15.3 g/dL (13.3-17.7); LYMPHOCYTES # (AUTO) 1.6 10^3/uL (1.0-4.0); LYMPHOCYTES % (AUTO) 15 % (12-44); MEAN CORPUSCULAR HEMOGLOBIN 33 pg (25-34); MEAN CORPUSCULAR HGB CONC 33 g/dL (32-36); MEAN CORPUSCULAR VOLUME 97 fL (80-99); MEAN PLATELET VOLUME 9.2 fL (9.0-12.2); MONOCYTES # (AUTO) 0.9 10^3/uL (0.0-1.0); MONOCYTES % (AUTO) 8 % (0-12); NEUTROPHILS # (AUTO) 8.3 10^3/uL (1.8-7.8); NEUTROPHILS % (AUTO) 76 % (42-75); PLATELET COUNT 358 10^3/uL (130-400); WHITE BLOOD COUNT 10.9 10^3/uL (4.3-11.0)
[2020-11-15 11:06] LABS: ALANINE AMINOTRANSFERASE 28 U/L (0-55); ALBUMIN 4.1 GM/DL (3.2-4.5); ALKALINE PHOSPHATASE 162 U/L (40-136); BILIRUBIN,TOTAL 0.7 MG/DL (0.1-1.0); BUN/CREATININE RATIO 18; CALCIUM 9.7 MG/DL (8.5-10.1); CARBON DIOXIDE 25 MMOL/L (21-32); CHLORIDE 104 MMOL/L (98-107); GFR ESTIMATED > 60; GLUCOSE 100 MG/DL (70-105); POTASSIUM 4.1 MMOL/L (3.6-5.0); SODIUM 136 MMOL/L (135-145); TOTAL PROTEIN 6.9 GM/DL (6.4-8.2)
[2020-11-15 11:47] LABS: ERYTHROCYTE SEDIMENTATION RATE 10 MM/HR (0-15)
== END ==
LOC: LAB 10:28
PROVIDERS: ATTEND Internal Medicine
DX: M05.7A Rheumatoid arthritis with rheumatoid factor of other specified site without organ or systems involvement (principal)
CPT/HCPCS: 36415; 80053; 85025; 85652; 86141

== ENCOUNTER → 2021-07-25 | Outpatient (CLI) | payer BC ==
[2021-07-25 17:34] LABS: FREE T4 (FREE THYROXINE) 0.76 NG/DL (0.70-1.48)
== END ==
LOC: LAB 16:07
PROVIDERS: ATTEND Physician Assistant
DX: C73 Malignant neoplasm of thyroid gland (principal)
CPT/HCPCS: 36415; 84439; 84443

== ENCOUNTER 2021-09-08 10:24 | Emergency (ER) | payer BC ==
[~2021-09-08] VITALS: Ht 187 cm; Wt 149.6 kg
--- NOTE | 2021-09-08 11:03 | ED Lower Extremity ---
General Chief Complaint: Lower Extremity Stated Complaint: DVT IN L LEG Nursing Triage Note: PT PRESENTS TO ED VIA POV FROM HOME WITH COMPLAINTS OF L UPPER THIGH PAIN SINCE WEDNESDAY. PT WAS SEEN AT HIS DR TODAY AND HAD AN OUTPATIENT US DONE AND TOLD HE HAD A DVT. Source: patient Exam Limitations: no limitations History of Present Illness Date Seen by Provider: Sep 08, 2021 Time Seen by Provider: 10:35 Initial Comments Patient to ER by private conveyance from ultrasound where he had a ultrasound of the deep veins on his left lower extremity secondary to a charley horse since last Wednesday that has not gone away. He says he has charley horses. It was discovered that he had a deep vein thrombosis. He is not on blood thinners. He had a deep vein thrombosis after a knee surgery in the past. He says in the last 2 to 3 weeks he got home from a long 8-hour drive to [place] from a . No chest pain or shortness of air. No exertional dyspnea. Allergies and Home Medications Allergies Coded Allergies: No Known Drug Allergies (Unverified , 05/03/19) Patient Home Medication List Home Medication List Reviewed: Yes Review of Systems Constitutional: No chills, No diaphoresis EENTM: No ear discharge, No ear pain Respiratory: No cough, No dyspnea on exertion Cardiovascular: No chest pain, No Hx of Intervention, No palpitations Gastrointestinal: No abdominal pain, No nausea Genitourinary: No discharge, No dysuria Musculoskeletal: see HPI; No back pain, No joint pain All Other Systems Reviewed Negative Unless Noted: Yes Past Odjmhsc-Hibect-Qkeqde Hx Patient Social History Tobacco Use?: Yes Tobacco type used: Cigarettes Smoking Status: Current Everyday Smoker Substance use?: Yes Substance type: Marijuana Alcohol Use?: Yes Alcohol Frequency: Rarely Pt feels they are or have been: No Immunizations Up To Date First/Initial COVID19 Vaccinat: YES Second COVID19 Vaccination Wayne: YES COVID19 Vaccine Blue Leather Sorter: Purple Binder Seasonal Allergies Seasonal Allergies: No Past Medical History Surgery/Hospitalization HX: PMH: RA, HTN, THYROID ISSUES SX: HERNIA REPAIR, BILAT KNEE SCOPES, THYROID Surgeries: Yes (RIGHT INGUINAL HERNIA REPAIR; BILATERAL KNEE SCOPES) Abdominal, Orthopedic Respiratory: No Cardiac: Yes (NEW DX 05/01/19) Hypertension Neurological: No Genitourinary: No Gastrointestinal: Yes (RIGHT INGUINAL HERNIA REPAIR) Abdominal Hernia Musculoskeletal: Yes Rheumatoid Arthritis Endocrine: Yes (OBESITY) HEENT: Yes (BIFOCALS) Cancer: No Psychosocial: No Integumentary: No Blood Disorders: No Adverse Reaction/Blood Tranf: No Physical Exam Vital Signs Vital Signs - First Documented 09/08/21 10:34 Temp 36.2 Pulse 79 Resp 16 B/P (MAP) 127/72 (90) Pulse Ox 95 Capillary Refill : Less Than 3 Seconds Height, Weight, BMI Height: '" Weight: lbs. oz. kg; 94.00 BMI Method: General Appearance: WD/WN, no apparent distress HEENT: normal ENT inspection, pharynx normal Neck: full range of motion, normal inspection Cardiovascular: normal peripheral pulses, regular rate, rhythm Respiratory: no respiratory distress, no accessory muscle use Feet: bilateral foot non-tender, bilateral foot normal inspection Neurologic/Tendon: normal sensation, normal motor functions Neurologic/Psychiatric: no motor/sensory deficits, alert, normal mood/affect Progress/Results/Core Measures Results/Orders Vital Signs/I&O 09/08/21 10:34 Temp 36.2 Pulse 79 Resp 16 B/P (MAP) 127/72 (90) Pulse Ox 95 Blood Pressure Mean: 90 Progress Progress Note : Time: 11:00 Progress Note Will start him on Eliquis. He had labs done last December which noted normal kidney function and denies ever having any kidney dysfunction. We will have him follow-up with his primary care provider in 2 to 4 weeks for recheck but after 2 DVTs he will likely need longer term anticoagulation. We did discuss return precautions and risks, benefits and alternatives to using blood thinners and the patient is okay with initiating them at this time. Departure Impression Primary Impression: Dvt femoral (deep venous thrombosis) Qualified Codes: I82.412 - Acute embolism and thrombosis of left femoral vein Disposition: HOME, SELF-CARE Condition: Stable Departure-Patient Inst. Decision time for Depature: 11:01 Referrals: JACQUELINE TORRES DO (PCP/Family) Primary Care Physician Patient Instructions: Deep Vein Thrombosis (Blood Clots in the Legs) (DC) Add. Discharge Instructions: Promptly return to the ER for chest pain, shortness of air or coughing up blood. Heating pads, topical creams, Tylenol are recommended for pain. Avoid ibuprofen as this will decrease the effectiveness of your Eliquis. Eliquis is a blood thinner to be taken twice a day. Follow-up in 2 to 4 weeks with your primary care doctor to discuss how the blood clot is resolving and continue the medication. Stay off ladders, out of trees, scaffolding or other increased risk for head injury. You have a minor head injury you should be checked out in the ER to look for an occult, slow-growing head bleed. Wear your seatbelt and/or helmets where appropriate. Blood in your urine or blood in your stool should prompt a visit to your primary care doctor to have appropriate work-up. All discharge instructions reviewed with patient and/or family. Voiced understanding. Scripts Apixaban (Eliquis) 5 Mg Tablet 5 MG PO BID for 30 Days, #60 TAB 0 Refills Prov: LAKE LAKHANI 09/08/21 Copy Copies To 1: JACQUELINE TORRES DO LAKE LAKHANI Sep 08, 2021 11:03
[2021-09-08] MEDS ORDERED: APIX5TAB PO (11:09)
[2021-09-08] MEDS ORDERED: ENOXAPARIN 80 MG/0.8 ML (LOVENOX) SYR SC ONE ×2 (11:15)
[2021-09-08 11:27] VITALS: BP 127/72
== END 2021-09-08 11:22 | disposition home or self-care (01) ==
LOC: EDUNIT# 10:24 → ER 10:25
DX: I82.412 Acute embolism and thrombosis of left femoral vein (principal); E66.9 Obesity, unspecified; F17.210 Nicotine dependence, cigarettes, uncomplicated; Z68.45 Body mass index [BMI] 70 or greater, adult
CPT/HCPCS: 96372; 99281

== ENCOUNTER → 2021-09-08 | Outpatient (CLI) | payer BC ==
[~2021-09-08] MED LIST changes: +APIX5TAB PO; -BAMLANIVIMAB (NON FORM) 700 MG in NS (IVPB) 100 ML IV ONE; -EPINEPHrine INJECTION 1 MG/ML AMP IM PRN; -diphenhydrAMINE 50 MG/ML INJ (BENADRYL) IV PRN
--- NOTE | 2021-09-08 10:40 | Diagnostic Imaging Report ---
PROCEDURE: US left lower extremity venous. TECHNIQUE: Multiple real-time grayscale images were obtained over the left lower extremity in various projections. Additional duplex Doppler and color Doppler images were also obtained. INDICATION: Prior history of DVT. Patient currently complains of left leg pain. FINDINGS: Extensive left lower extremity DVT is noted. There is occlusive thrombus extending from the left common femoral vein to the calf. The common femoral, superficial femoral, and popliteal veins appear to be completely occluded. Upper and mid calf veins are occluded. There is no fluid collection seen. There is no mass. IMPRESSION: Extensive occlusive left lower extremity DVT. Dictated by: Dictated on workstation # [id number]
== END ==
LOC: RAD 09:32
PROVIDERS: ATTEND Nurse Practitioner Family
DX: I82.412 Acute embolism and thrombosis of left femoral vein (principal); I82.432 Acute embolism and thrombosis of left popliteal vein

== ENCOUNTER → 2022-03-04 | Outpatient (CLI) | payer BC ==
--- NOTE | 2022-03-04 10:44 | Diagnostic Imaging Report ---
PROCEDURE: US left lower extremity venous. TECHNIQUE: Multiple real-time grayscale images were obtained over the left lower extremity in various projections. Additional duplex Doppler and color Doppler images were also obtained. INDICATION: History of DVT. Correlation is made prior study 09/08/2021. On today's study, the left common femoral vein is patent. There does continue to be extensive thrombus throughout the superficial femoral vein. The popliteal vein appears to be patent on today's study. Calf veins are patent. IMPRESSION: Overall improvement in left lower extremity DVT when compared with exam from 09/08/2021. There continues to be occlusive thrombus within the superficial femoral vein. Dictated by: Dictated on workstation # [id number]
== END ==
LOC: RAD 09:58
PROVIDERS: ATTEND Family Medicine
DX: Z86.718 Personal history of other venous thrombosis and embolism (principal)

== ENCOUNTER 2022-04-23 05:42 | Outpatient (CLI) | payer BC ==
[~2022-04-23] VITALS: Ht 187.9 cm; Wt 150.0 kg
== END 2022-04-24 17:11 | disposition home or self-care (01) ==
LOC: PREOP 05:42
PROVIDERS: ATTEND Internal Medicine
DX: Z01.818 Encounter for other preprocedural examination (principal)

== ENCOUNTER 2022-05-01 09:09 | Day surgery (SDC) | payer BC ==
--- NOTE | 2022-04-22 21:06 | HISTORY AND PHYSICAL ---
DATE OF SERVICE: COLONOSCOPY HISTORY AND PHYSICAL HISTORY OF PRESENT ILLNESS: The patient is a 52-year-old white male referred by Dr. Shah for his first screening colonoscopy. He seemed to be of average risk as he is not aware of any family history for colon cancer or colon polyps. He denies bright red blood per rectum, melena, change in bowel habit or abdominal pain. 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 Last occurrence was in July of this year. He has been on Eliquis chronically since. History of hyperlipidemia with no known history of coronary artery disease and is on thyroid replacement, presumably for Jason's thyroiditis. SOCIAL HISTORY: Currently, he is unemployed secondary he states to rheumatoid arthritis. He smokes half a pack of cigarettes per day with a 15 plus pack year smoking history with seldom small volume alcohol consumption. He is , with two children. One child is . FAMILY HISTORY: Father living at age 80. He has had one leg amputated, felt to be infection related while on Remicade. He had mild type 2 diabetes that was not felt to be the major contributor. Mother is living at 80 with no health problems. Two brothers, one has had a DVT with no other health problems. REVIEW OF SYSTEMS: CONSTITUTIONAL: Denies night sweats, chills, fever or change in weight. PULMONARY: Denies cough, wheezing or shortness of breath. CARDIOVASCULAR: Denies chest discomfort, orthopnea, PND, pedal edema or syncope. GASTROINTESTINAL: As noted in the HPI. PHYSICAL EXAMINATION: GENERAL: Reveals pleasant overweight white male in no acute distress. VITAL SIGNS: Weight 338 pounds, blood pressure 132/82. HEENT: Unremarkable. Mallampati 1 oropharyngeal configuration. NECK: Revealed no JVD, adenopathy or bruits. CHEST: Clear to auscultation. CARDIOVASCULAR: Reveals a regular rate and rhythm without murmur, S3 or S4. ABDOMEN: Soft, supple without mass, organomegaly or tenderness. EXTREMITIES: Reveal no cyanosis, clubbing or edema. ASSESSMENT AND PLAN: The patient is being set up for his first screening colonoscopy on 05/01/2022. Prep instructions were given, and questions were answered. As he is on Eliquis, it was only recommended that he abstain from the medication for 24 hours so that bridging therapy will not be necessary, and we will plan on starting Eliquis day of this procedure barring removal of a polyp felt to be high risk for bleeding. I thank you for the referral of this pleasant gentleman. Job ID: [id number] DocumentID: [id number] Dictated Date: 04/22/2022 14:31:35 Flatwork Presser Date: 04/22/2022 14:51:09 Dictated By: SUYAPA CASTILLO MD MTDD
[~2022-05-01] VITALS: Ht 187.9 cm; Wt 150.0 kg
--- NOTE | 2022-05-01 09:33 | Pre-Op Note & Conscious Sedat ---
Pre-Operative Progress Note Date H&P Reviewed: May 01, 2022 Time H&P Reviewed: 09:32 History & Physical: H&P Reviewed, Patient Examed, No changes noted Pre-Op Diagnosis: screening Conscious Sedation Pre-Proced ASA Score 2 For ASA 3 and 4: Consider anesthesia and medical clearance. Also, for patients with a history of failed moderate sedation consider anesthesia. Airway Lungs Heart ASA score ASA 1: a normal healthy patient ASA 2: a patient with a mild systemic disease (mid diabetes, controlled hypertension, obesity ASA 3: a patient with a severe systemic disease that limits activity (angina, COPD, prior Myocardial infarction) ASA 4: a patient with an incapacitating disease that is a constant threat to life (CHF, renal failure) ASA 5: a moribund patient not expected to survive 24 hrs. (ruptured aneurysm) ASA 6: a declared brain- patient whose organs are being harvested. For emergent operations, add the letter E after the classification Mallampati Classification Grade 3 Sedation Plan Analgesia, Amnesia, Plan communicated to team members, Discussed options with patient/fam, Discussed risks with patient/fam The patient is an appropriate candidate to undergo the planned procedure, sedation, and anesthesia. The patient immediately re-assessed prior to indication. SUYAPA CASTILLO MD May 01, 2022 09:33
[2022-05-01 09:35] VITALS: BP 129/76
[2022-05-01] MEDS ORDERED: LACTATED RINGERS 1,000 ML IV ONE (09:36)
[2022-05-01] MEDS ORDERED: LACTATED RINGERS 1,000 ML IV STA (09:46)
[2022-05-01] MEDS ORDERED: MIDAZOLAM 2 MG/2 ML (VERSED) VIAL ONE (10:11)
[2022-05-01] MEDS ORDERED: PROPOFOL INJECTION 50 ML IV ONE ×2 (10:11→10:29)
[2022-05-01 10:45] VITALS: BP 120/65
[2022-05-01 10:50] VITALS: BP 119/63
--- NOTE | 2022-05-01 10:50 | Anesthesia-General Post-Op ---
MAC Patient Condition Mental Status/LOC: Same as Preop Cardiovascular: Satisfactory Nausea/Vomiting: Absent Respiratory: Satisfactory Pain: Controlled Complications: Absent Post Op Complications Complications None Follow Up Care/Instructions Patient Instructions None needed. Anesthesiology Discharge Order Discharge Order Patient is doing well, no complaints, stable vital signs, no apparent adverse anesthesia problems. No complications reported per nursing. TY PRETTY CRNA May 01, 2022 10:49
[2022-05-01 10:55] VITALS: BP 122/71
--- NOTE | 2022-05-01 11:00 | Progress Note-Post Operative ---
Post-Procedure Note Physician (s)/Manufacturing Machine Operator (s) Physician SUYAPA CASTILLO MD Pre-Procedure Diagnosis Pre-Procedure Diagnosis: screening Post-Procedure Diagnosis Post-operative diagnosis: Prior to undergoing colonoscopy digital rectal evaluation was performed. Anal sphincter tone was normal and the perianal reflex was intact. Prostate is mildly enlarged on digital inspection with no nodularity. No other abnormalities were noted on digital inspection of the anal canal or distal rectal vault. The colonoscope was then inserted into the rectum and under direct visualization advanced to the cecum. The cecum was identified by identification of the ileocecal valve and cecal strap. Photographic documentation was obtained. Quality the prep was good. A careful inspection was made on withdrawal of the colonoscope. Findings: 1 3 mm distal rectal polyp was noted it was biopsied and ablated with no subsequent blood loss. Several 1 to 2 mm hyperplastic appearing polyps around the rectosigmoid junction were noted in the left considering the patient is on anticoagulant therapy. mild diverticular disease confined to the sigmoid colon was noted without evidence for diverticulitis. A 4 mm mid rectal polyp was biopsied and ablated as well with no subsequent blood loss. An 8 mm sessile distal transverse colon and similar sized mid a sending colonic polyp were noted and also biopsied and ablated with minimal blood loss. No other abnormalities were noted in the cecum was unremarkable. A/P 1. Mild diverticular disease confined to the sigmoid colon was present without evidence for diverticulitis. 2. Digital rectal evaluation was compatible with mild BPH. 3. 4 sessile polyps were removed locations in the distal rectum mid rectum distal transverse and mid a sending via hot forceps with no significant blood loss. Considering this the patient was advised to resume Eliquis on Wednesday avoiding car rides longer than 30 minutes without walking and discussed the importance of walking on a regular basis especially off anticoagulant therapy over the weekend. CC: Dr. Juhi CASTILLO,SUYAPA Galdamez MD May 01, 2022 11:00
[2022-05-01 11:10] VITALS: BP 125/80
[2022-05-01 11:23] VITALS: BP 125/80
== END 2022-05-01 11:23 | disposition home or self-care (01) ==
LOC: ENDO 09:09
PROVIDERS: ATTEND Internal Medicine
DX: Z12.11 Encounter for screening for malignant neoplasm of colon (principal); N40.0 Benign prostatic hyperplasia without lower urinary tract symptoms; D12.8 Benign neoplasm of rectum; K62.1 Rectal polyp; K63.5 Polyp of colon; K57.30 Diverticulosis of large intestine without perforation or abscess without bleeding; Z79.01 Long term (current) use of anticoagulants; Z86.718 Personal history of other venous thrombosis and embolism; F17.210 Nicotine dependence, cigarettes, uncomplicated; Z79.890 Hormone replacement therapy; E66.01 Morbid (severe) obesity due to excess calories; G47.33 Obstructive sleep apnea (adult) (pediatric); Z68.41 Body mass index [BMI] 40.0-44.9, adult
CPT/HCPCS: 88305

== ENCOUNTER → 2022-08-25 | Outpatient (CLI) | payer BC | LOC: ORTHO 15:02 | PROVIDERS: ATTEND Orthopaedic Surgery | DX: M17.12 Unilateral primary osteoarthritis, left knee (principal) | CPT/HCPCS: 99203 ==

== ENCOUNTER → 2022-09-15 | Outpatient (CLI) | payer BC | LOC: ORTHO 15:51 | PROVIDERS: ATTEND Orthopaedic Surgery | DX: M17.12 Unilateral primary osteoarthritis, left knee (principal); I10 Essential (primary) hypertension | CPT/HCPCS: 20610 ==

== ENCOUNTER → 2022-11-17 | Outpatient (CLI) | payer BC | LOC: ORTHO 13:43 | PROVIDERS: ATTEND Orthopaedic Surgery | DX: M17.12 Unilateral primary osteoarthritis, left knee (principal); M75.101 Unspecified rotator cuff tear or rupture of right shoulder, not specified as traumatic; I10 Essential (primary) hypertension | CPT/HCPCS: 99213 ==

== ENCOUNTER → 2022-12-10 | Outpatient (CLI) | payer BC | LOC: ORTHO 08:36 | PROVIDERS: ATTEND Orthopaedic Surgery | DX: M75.101 Unspecified rotator cuff tear or rupture of right shoulder, not specified as traumatic (principal) | CPT/HCPCS: 20610 ==